=== PATIENT | female | born 1950 | race Caucasian/White ===

== ENCOUNTER 2016-08-27 02:46 | Inpatient (IN) | payer MEDICARE, MEDICAID ==
[~2016-08-27] VITALS: Ht 172.7 cm; Wt 61.2 kg
[~2016-08-27 02:46] MED LIST: ALBU8.5H2 INH; AML5T PO; ASP325T PO; FLUT1DIS26 INH; GBPN100C PO; HYDR-2890 PO; INSU100V5 SQ; IPRA3AMP11 INH; Insulin Human Lispro SC; LISI10TA2 PO; LISI40TA PO; METH40VI2 IV; NCT14P TD; NS10S IV; Non Medication Item TP; PNT40TEC PO; ROSU10TA12 PO; RT-ALBUINH IH; SERT50TA PO; SLMFT1E INH; TIOT18CA IH; WARF2TAB6 PO; WARF4TAB PO; ZLP10T PO
[2016-08-27] MEDS ORDERED: DEXAMETHASONE 4 MG/ML SDV (DECADRON) IH ONE (03:15)
[2016-08-27] MEDS ORDERED: RT-ALBUTEROL/IPRATROPIUM 3 ML (DUONEB) VIAL INH ONE (03:15)
[2016-08-27] MEDS ORDERED: methylPREDNISolone 125 MG (Solu-MEDROL) VIAL IVP ONE (03:15)
[2016-08-27] MEDS ORDERED: ASPI-586 PO (03:25)
[2016-08-27 03:29] LABS: BASOPHILS # (AUTO) 0.1 10^3/uL (0.0-0.1); BASOPHILS % (AUTO) 0 % (0-10); EOSINOPHILS # (AUTO) 0.3 10^3/uL (0.0-0.3); EOSINOPHILS % (AUTO) 2 % (0-10); LYMPHOCYTES # (AUTO) 2.9 X 10^3 (1.0-4.0); LYMPHOCYTES % (AUTO) 20 % (12-44); MEAN CORPUSCULAR HEMOGLOBIN 28 PG (25-34); MEAN CORPUSCULAR HGB CONC 32 G/DL (32-36); MEAN CORPUSCULAR VOLUME 88 FL (80-99); MEAN PLATELET VOLUME 9.3 FL (7.4-10.4); MONOCYTES # (AUTO) 0.6 X 10^3 (0.0-1.0); MONOCYTES % (AUTO) 4 % (0-12); NEUTROPHILS # (AUTO) 10.5 X 10^3 (1.8-7.8); NEUTROPHILS % (AUTO) 73 % (42-75); PLATELET COUNT 305 10^3/uL (130-400); RED BLOOD COUNT 4.35 10^6/uL (4.35-5.85); RED CELL DISTRIBUTION WIDTH 15.2 % (10.0-14.5); WHITE BLOOD COUNT 14.3 10^3/uL (4.3-11.0)
[2016-08-27 03:32] LABS: INR 2.6 (0.8-1.4); PROTHROMBIN TIME PATIENT 27.5 SEC (12.2-14.7)
[2016-08-27 03:45] LABS: ALANINE AMINOTRANSFERASE 7 U/L (0-55); ALBUMIN 3.9 G/DL (3.2-4.5); ANION GAP 13 MMOL/L (5-14); ASPARTATE AMINO TRANSFERASE 11 U/L (5-34); BILIRUBIN,TOTAL 0.3 MG/DL (0.1-1.0); BLOOD UREA NITROGEN 24 MG/DL (7-18); BUN/CREATININE RATIO 16; CALCIUM 9.1 MG/DL (8.5-10.1); CARBON DIOXIDE 24 MMOL/L (21-32); CHLORIDE 105 MMOL/L (98-107); CREATINE KINASE 149 U/L (29-168); CREATININE SERUM 1.53 MG/DL (0.60-1.30); GFR ESTIMATED 34; GLUCOSE 175 MG/DL (70-105); MAGNESIUM 2.1 MG/DL (1.8-2.4); POTASSIUM 4.9 MMOL/L (3.6-5.0); SODIUM 142 MMOL/L (135-145)
[2016-08-27 03:51] LABS: TROPONIN I < 0.30 NG/ML (<0.30)
[2016-08-27 04:01] LABS: ABG BASE EXCESS -0.7 MMOL/L (-2.5-2.5); ABG HCO3 25 MMOL/L (23-27); ABG OXYGEN SATURATION 95 % (94-100); ABG PCO2 45 MMHG (35-45); ABG PH 7.36 (7.37-7.43); ABG PO2 71 MMHG (79-93); ABG TCO2 26.3 MMOL/L (21.0-31.0)
[2016-08-27 04:03] LABS: ALLENS TEST YES-POS; PATIENT TEMP 98.1
--- NOTE | 2016-08-27 04:24 | ED Respiratory ---
General Chief Complaint: Respiratory Problems Stated Complaint: SOA Nursing Triage Note: PT PRESENTS TO ED VIA [facility]. PT REPORTS FALLING YESTERDAY EVENING AND REPORTS WORSENING SOA SINCE LAST NIGHT. PT REPORTS SHE FELL WHEN SHE LOST AHOLD OF HER WALKER WHILE AMBULATING. PT DENIES ANY KNOWN INJURY OR PAIN AT THIS TIME. PT DENIES HITTING HEAD OR LOC. Source: patient (VERY LIMITED HISTORIAN), family (DAUGHTER GIVES MOST INFORMATION), EMS History of Present Illness Time seen by provider: 02:54 Initial Comments PT ARRIVES VIA EMS FROM HOME PT FELL YESTERDAY AM AND INJURED LEFT BREAST AND RIB AREA. WAS USING HER WALKER AND LOST BALANCE/ LOST HOLD OF HER WALKER. WAS SEEN [facility] YESTERDAY AM AROUND 0600 AND XRAYS WERE DONE AND REPORTED NEGATIVE, AND WAS GIVEN RX FOR HYDROCODONE [id number]--PT HAS TAKEN 6 TABS TODAY NO OTHER INJURIES DID NOT HIT HEAD AND NO LOSS OF CONSCIOUSNESS PT DENIES PAIN ANYWHERE. PT HAS COPD AND HAS HAD INCREASED SHORTNESS OF BREATH SINCE LAST NIGHT. O2 SATS 92-94% ON ROOM AIR PER EMS. PT HAS LOOSE COUGH NO FEVER NO SWELLING IN LEGS/ FEET OR PAIN IN CALVES. DAUGHTER STATES THAT PT "CAN'T STAY AWAKE TONIGHT" IS VERY DROWSY--DAUGHTER STATES THAT PT IS NORMALLY AWAKE ALL NIGHT. PT HAS ADVAIR AND WAS STARTED ON INCRUISE INHALER A MONTH AGO ( REPLACED SPIRIVA ) , WHICH PT HAS USED YESTERDAY PRESCRIBED PT HAS ALBUTEROL NEBULIZER, BUT ONLY USED ONCE YESTERDAY AM EMS GAVE NEBULIZER TREATMENT ENROUTE PCP: DR. RIVERO Allergies and Home Medications Allergies Coded Allergies: No Known Drug Allergies (Unverified , 02/25/14) Home Medications Albuterol/Ipratropium 3 Ml Nebu 30Days 3 ML INH RTQ4HR Prescribed by: ANTOINE VILLAGOMEZ on 02/27/14 1713 Aspirin 81 Mg Prashant. 81 MG PO DAILY (Reported) Fluticasone/Salmeterol 1 Disk Inhp 1 PUFF INH BID (Reported) Gabapentin 100 Mg Cap 100 MG PO BID (Reported) Lisinopril 40 Mg Tablet 40 MG PO DAILY (Reported) Rosuvastatin Calcium 10 Mg Tablet 10 MG PO HS (Reported) Sertraline Hcl 50 Mg Tablet 50 MG PO DAILY (Reported) Tiotropium [place] 18 Mcg Cap.w.dev 1 CAP IH DAILY (Reported) Warfarin Sodium 2 Mg Tablet 4 MG PO HS (Reported) PT TAKES 2 MG ON MON, WED, AND MON. PT TAKES 4 MG ON , , MON, AND MONDAY. Zolpidem Tartrate 10 Mg Tablet 10 MG PO HS (Reported) Constitutional: malaise weakness other (DROWSINESS) Respiratory: see HPI cough short of breath Cardiovascular: no symptoms reported Gastrointestinal: no symptoms reported Genitourinary: decreased output (DAUGHTER REPORTS THAT PT HAS ONLY VOIDED 1-2 TIMES TODAY, AND NORMALLY IS 3-4 TIMES A DAY AND IS CHRONICALLY INCONTINENT OF URINE. ) Musculoskeletal: see HPI (LEFT RIB PAIN ) Skin: no symptoms reported Psychiatric/Neurological: No Symptoms Reported Hematologic/Lymphatic: No Symptoms Reported Immunological/Allergic: no symptoms reported Past Sftcqkk-Avpsjc-Gxhexp Hx Patient Social History Alcohol Use: Denies Use Recreational Drug Use: No Smoking Status: Current Everyday Smoker (1/2 PPD) Type Used: Cigarettes Recent Foreign Travel: No Contact w/Someone Who Travel: No Recent Infectious Disease Expo: No Recent Hopitalizations: No Physical Abuse Screen: No Sexual Abuse: No Immunizations Up To Date Date of Pneumonia Vaccine: Aug 28, 2012 Seasonal Allergies Seasonal Allergies: No Surgeries HX Surgeries: Yes (LEFT KNEE REPLACEMENT; LEFT HIP FX/REPAIR; VENA CAVA FILTER) Surgeries: Orthopedic, Vascular Surgery Respiratory Hx Respiratory Disorders: Yes (DVT AND P.E POST OP AFTER HIP SURGERY 2012) Respiratory Disorders: Pneumonia, Pulmonary Embolism, COPD, Emphysema Cardiovascular Hx Cardiac Disorders: Yes Cardiac Disorders: Deep Vein Thrombosis, High Cholesterol, Hypertension Neurological Hx Neurological Disorders: Yes (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 ) Neurological Disorders: Stroke Reproductive System Hx Reproductive Disorders: No Genitourinary Hx Genitourinary Disorders: Yes (INCONTINENCE) Gastrointestinal Hx Gastrointestinal Disorders: No Musculoskeletal Hx Musculoskeletal Disorders: Yes Musculoskeletal Disorders: Arthritis, Fractures Endocrine Hx Endocrine Disorders: No HEENT HX ENT Disorders: No Cancer Hx Cancer: No Psychosocial Hx Psychiatric Problems: Yes Behavioral Health Disorders: Sleep Difficulties, Anxiety, Depression Integumentary HX Skin/Integumentary Disorder: No Blood Transfusions Hx Blood Disorders: Yes (ANEMIA) Family Medical History Family Medial History: Family history: Cardiovascular disease 19 FATHER (irregular heart rythm ) 19 MOTHER G8 SISTER G8 SISTER Family history: Diabetes mellitus 19 MOTHER, Onset:60 years & older Family history: Hypertension G8 SISTER G8 SISTER Hearing loss 19 MOTHER (with age ) Kidney disease 19 FATHER (kidney stones removed with surgery) Stroke G8 SISTER Physical Exam Vital Signs Vital Sign - Last 12Hours 08/27/16 08/27/16 03:08 03:26 Temp 98.5 Pulse 81 Resp 18 B/P 106/63 Pulse Ox 92 O2 Delivery Nasal Cannula O2 Flow Rate 9 Capillary Refill : Less Than 3 Seconds General Appearance: WD/WN no apparent distress other (LETHARGIC/DROWSY. RESPIRATIONS EVEN AND UNLABORED, BUT HAS AUDIBLE RHONCHI) HEENT: PERRL/EOMI Neck: normal inspection Respiratory: no accessory muscle use other (AUDIBLE RHONCHI) Cardiovascular: regular rate, rhythm no murmur Gastrointestinal: non tender soft Extremities: no pedal edema no calf tenderness normal capillary refill Neurologic/Psychiatric: seafood packer II-XII nml as tested no motor/sensory deficits alert oriented x 3 other (DROWSY/LETHARGIC) Skin: normal color warm/dry Progress/Results/Core Measures Results/Orders Lab Results Laboratory Tests Test 08/27/16 03:02 08/27/16 03:50 08/27/16 05:14 Range/Units Activated Partial Thromboplast Time 56 H 24-35 SEC Alanine Aminotransferase (ALT/SGPT) 7 0-55 U/L Albumin 3.9 3.2-4.5 G/DL Alkaline Phosphatase 79 40-136 U/L Anion Gap 13 5-14 MMOL/L Aspartate Amino Transf (AST/SGOT) 11 5-34 U/L B-Type Natriuretic Peptide 22.4 <100.0 PG/ML BUN/Creatinine Ratio 16 Basophils # (Auto) 0.1 0.0-0.1 10^3/uL Basophils (%) (Auto) 0 0-10 % Blood Urea Nitrogen 24 H 7-18 MG/DL Calcium Level 9.1 8.5-10.1 MG/DL Carbon Dioxide Level 24 21-32 MMOL/L Chloride Level 105 98-107 MMOL/L Creatine Kinase MB 3.9 <6.6 NG/ML Creatinine 1.53 H 0.60-1.30 MG/DL Eosinophils # (Auto) 0.3 0.0-0.3 10^3/uL Eosinophils (%) (Auto) 2 0-10 % Estimat Glomerular Filtration Rate 34 Glucose Level 175 H 70-105 MG/DL Hematocrit 38 35-52 % Hemoglobin 12.2 11.5-16.0 G/DL INR Comment 2.6 H 0.8-1.4 Lactic Acid Level 1.4 0.5-2.0 MMOL/L Lymphocytes # (Auto) 2.9 1.0-4.0 X 10^3 Lymphocytes (%) (Auto) 20 12-44 % Magnesium Level 2.1 1.8-2.4 MG/DL Mean Corpuscular Hemoglobin 28 25-34 PG Mean Corpuscular Hemoglobin Concent 32 32-36 G/DL Mean Corpuscular Volume 88 80-99 FL Mean Platelet Volume 9.3 7.4-10.4 FL Monocytes # (Auto) 0.6 0.0-1.0 X 10^3 Monocytes (%) (Auto) 4 0-12 % Neutrophils # (Auto) 10.5 H 1.8-7.8 X 10^3 Neutrophils (%) (Auto) 73 42-75 % Platelet Count 305 130-400 10^3/uL Potassium Level 4.9 3.6-5.0 MMOL/L Prothrombin Time 27.5 H 12.2-14.7 SEC Red Blood Count 4.35 4.35-5.85 10^6/uL Red Cell Distribution Width 15.2 H 10.0-14.5 % Sodium Level 142 135-145 MMOL/L Total Bilirubin 0.3 0.1-1.0 MG/DL Total Creatine Kinase 149 29-168 U/L Total Protein 7.0 6.4-8.2 G/DL Troponin I < 0.30 <0.30 NG/ML White Blood Count 14.3 H 4.3-11.0 10^3/uL Sunday Test YES-POS Arterial Blood Base Excess -0.7 -2.5-2.5 MMOL/L Arterial Blood HCO3 25 23-27 MMOL/L Arterial Blood Oxygen Saturation 95 94-100 % Arterial Blood Partial Pressure CO2 45 35-45 MMHG Arterial Blood Partial Pressure O2 71 L 79-93 MMHG Arterial Blood Total CO2 26.3 21.0-31.0 MMOL/L Arterial Blood pH 7.36 L 7.37-7.43 Blood Gas Inspired Oxygen 2L Blood Gas Patient Temperature 98.1 Blood Gas Puncture Site RIGHT RADIAL Blood Gas Ventilator Setting NO Urine Bacteria LARGE H /HPF Urine Bilirubin 1+ H NEGATIVE Urine Casts PRESENT /LPF Urine Clarity SLIGHTLY CLOUDY Urine Color YELLOW Urine Crystals NONE /LPF Urine Culture Indicated YES Urine Glucose (UA) NEGATIVE NEGATIVE Urine Hyaline Casts 10-25 H /LPF Urine Ketones 1+ H NEGATIVE Urine Leukocyte Esterase 3+ H NEGATIVE Urine Mucus LARGE H /LPF Urine Nitrite POSITIVE H NEGATIVE Urine Protein 2+ H NEGATIVE Urine RBC NONE /HPF Urine RBC (Auto) 1+ H NEGATIVE Urine Specific [place] 1.020 1.016-1.022 Urine Squamous Epithelial Cells 5-10 /HPF Urine Urobilinogen 1 NORMAL MG/DL Urine WBC 25-50 H /HPF Urine pH 5 5-9 Micro Results Microbiology 08/27/16 Influenza Types A,B Antigen (SILVESTRE) - Final, Complete My Orders Orders-RICKEY LOWRY DO Saline Lock/Iv-Start (08/27/16 03:03) Ekg Tracing (08/27/16 03:03) O2 (08/27/16 03:03) Monitor-Rhythm Ecg Trace Only (08/27/16 03:03) Arterial Blood Gas (08/27/16 03:03) BNP (08/27/16 03:03) Cbc With Automated Diff (08/27/16 03:03) Comprehensive Metabolic Panel (08/27/16 03:03) Creatine Kinase (08/27/16 03:03) Creatine Kinase Mb (08/27/16 03:03) Lactic Acid Analyzer (08/27/16 03:03) Magnesium (08/27/16 03:03) Protime With Inr (08/27/16 03:03) Partial Thromboplastin Time (08/27/16 03:03) Troponin I (08/27/16 03:03) Blood Culture (08/27/16 03:03) Influenza A And B Antigens (08/27/16 03:03) Chest 1 View, Ap/Pa Only (08/27/16 03:03) Albuterol/Ipra Inhalation Soln (Duoneb I (08/27/16 03:15) Dexamethasone Injection (Decadron Inject (08/27/16 03:15) Rt Request For Service (08/27/16 03:03) Svn Sm Volume Nebulizer Rt-Rfs (08/27/16 03:03) Methylprednisolone Sod Succ (Solu-Medrol (08/27/16 03:15) Ct Chest Wo (08/27/16 04:24) Ua Culture If Indicated (08/27/16 04:47) Urine Culture (08/27/16 05:14) Levofloxacin 750 Mg/150 Ml Iv (Levaquin (08/27/16 05:31) Medications Given in ED Current Medications Medications Dose Ordered Sig/Marcin Route Start Time Stop Time Status Last Admin Dose Admin Albuterol/ Ipratropium 3 ml ONCE ONCE INH 08/27/16 03:15 08/27/16 03:16 DC 08/27/16 03:29 3 ML Dexamethasone Sodium Phosphate 20 mg ONCE ONCE IH 08/27/16 03:15 08/27/16 03:16 DC 08/27/16 03:29 20 MG Methylprednisolone Sodium Succinate 125 mg ONCE ONCE IVP 08/27/16 03:15 08/27/16 03:16 DC 08/27/16 03:18 125 MG Vital Signs/I&O Vital Sign - Last 12Hours 08/27/16 08/27/16 08/27/16 03:08 03:26 03:29 Temp 98.5 Pulse 81 Resp 18 B/P 106/63 Pulse Ox 92 94 92 O2 Delivery Nasal Cannula Nasal Cannula Nasal Cannula O2 Flow Rate 9 2 Blood Pressure Mean: 77 Progress Note : Progress Note NO SIGNIFICANT IMPROVEMENT AFTER NEBULIZER TREATMENTS BP UP WITH FLUIDS 0520 DAUGHTER NOW REPORTS THAT SHE HAS ASPIRATED BEFORE AND FREQUENTLY CHOKES EVERY TIME SHE EATS, BUT TONIGHT WAS EATING ICE CREAM AND GOT REALLY CHOKED AND DAUGHTER NOW REPORTS THAT SHE MIGHT HAVE ASPIRATED THEN. ECG Initial ECG Impression Time: 03:08 Initial ECG Rate: 81 Initial ECG Rhythm: Normal Sinus Initial ECG Comparisson: No Previous ECG Available Diagnostic Imaging Comments CXR--CHRONIC APPEARING CHANGES, PENDING RADIOLOGIST REVIEW CT CHEST--DEBRIS/ASPIRATION NOTED IN BILATERAL BRONCHI, RLL CONSOLIDATION/ COLLAPSE, LIKELY ASPIRATION IN RLL AND LEFT LUNG, EMPHYSEMATOUS CHANGES. OTHER NON-ACUTE FINDINGS PER STAT RAD VIA FAX @ 1525 Reviewed: Reviewed by Me Departure Communication Progress Notes [id number]--PAGED /SPOKE WITH DR. FERGUSON, ACCEPTS PT FOR ADMIT. Impression Impression: Primary Impression: COPD exacerbation Additional Impressions: RLL pneumonia Hypoxia Aspiration pneumonia DEHYDRATION WITH RENAL INSUFFICIENCY Hypotension UTI (urinary tract infection) Disposition: ADMITTED INPATIENT Condition: Stable Decision to Admit Reason: Admit from ER (General) Decision to Admit/Date: Aug 27, 2016 Time/Decision to Admit Time: 05:30 Departure-Patient Inst. Referrals: MONIQUE RIVERO MD (PCP) Primary Care Physician RICKEY LOWRY DO Aug 27, 2016 04:24
[2016-08-27 05:25] LABS: BILIRUBIN,URINE 1+ (NEGATIVE); KETONES,URINE 1+ (NEGATIVE); LEUKOCYTE ESTERASE ,URINE 3+ (NEGATIVE); NITRITE,URINE POSITIVE (NEGATIVE); PH,URINE 5 (5-9); PROTEIN,URINE 2+ (NEGATIVE); UROBILINOGEN,URINE 1 MG/DL (NORMAL)
[2016-08-27] MEDS ORDERED: LEVOFLOXACIN 750 MG/150 ML IV 150 ML IV STA (05:31)
[2016-08-27 05:35] LABS: WBC,URINE 25-50 /HPF
[2016-08-27] MEDS ORDERED: D5 1/2 NS 1000 ML IV SOLUTION 1,000 ML IV ONE (05:56)
[2016-08-27] MEDS ORDERED: NS IV 500 ML 500 ML IV ONE (05:57)
[2016-08-27 06:45] VITALS: BP 97/60
--- NOTE | 2016-08-27 07:27 | Diagnostic Imaging Report ---
PROCEDURE: CT chest without contrast. TECHNIQUE: Multiple contiguous axial images were obtained through the chest without the use of intravenous contrast. INDICATION: Shortness of breath. COMPARISON: Comparison is made with a chest radiograph from earlier in the same day. Correlation also made with a prior CT angiogram of the chest from February 25, 2014. FINDINGS: There is dense consolidation demonstrated within the right lower lobe at the right lung base. There is also more patchy infiltrate demonstrated within the left lower lobe. Findings appear superimposed on background features of underlying centrilobular emphysema. There is no evidence of an effusion. There is no pneumothorax. There are atherosclerotic calcifications within the aorta and coronary vessels. There are some small non-pathologically enlarged mediastinal lymph nodes. There is no pericardial effusion. The upper abdomen demonstrates no acute process. An IVC filter is noted. There are multilevel degenerative changes demonstrated within the spine. There is a lower thoracic compression fracture which demonstrates no acute fracture lines and is believed to be chronic. There is no adjacent paraspinal edema. IMPRESSION: 1. Dense consolidative changes are demonstrated within the right lower lobe compatible with pneumonia. There are more patchy infiltrates within the left lower lobe. 2. Findings appear superimposed on background features of underlying centrilobular emphysema. 3. There is no pathologically enlarged lymphadenopathy. 4. Atherosclerosis of coronary artery disease. 5. Lower thoracic compression fracture believed to be chronic. Dictated by: Dictated on workstation # [id number]
--- NOTE | 2016-08-27 07:45 | Diagnostic Imaging Report ---
EXAMINATION: Portable chest is compared to a prior study from February 27, 2014. INDICATION: Shortness of breath. FINDINGS: Right greater than left bibasilar consolidation or infiltrate is demonstrated. Findings are superimposed on background chronic interstitial lung disease. Heart size and mediastinal contours appear appropriate. There is no significant effusion. There is no pneumothorax. There are degenerative changes present throughout the spine. An IVC filter is noted. IMPRESSION: Right greater than left basilar consolidation suggestive of infiltrates. There is no significant pleural fluid. Findings are superimposed on background chronic interstitial lung disease. Dictated by: Dictated on workstation # [id number]
[2016-08-27] MEDS ORDERED: VANCOMYCIN 1250 MG/NS 250 ML IVPB IV NR ×2 (07:55)
[2016-08-27 08:00] VITALS: BP 93/58
[2016-08-27] MEDS: D5 1/2 NS 1000 ML IV SOLUTION 1,000 ML IV SCH ×3 (08:00→17:16)
[2016-08-27] MEDS ORDERED: fentaNYL INJECTION 100 MCG/2 ML AMP IVP PRN (08:00)
[2016-08-27] MEDS ORDERED: RT-ALBUTEROL/IPRATROPIUM 3 ML (DUONEB) VIAL ONE (08:59)
[2016-08-27] MEDS: CEFEPIME 2 GM/NS 50 ML IVPB IV SCH ×2 (10:30)
--- NOTE | 2016-08-27 11:31 | History & Physical-Hospitalist ---
HPI History of Present Illness: HPI/Chief Complaint Mrs. Ontiveros is a frail 66-year-old white female who is cared for by her daughter due to some the sequela of a right-sided CVA with left-sided hemiparesis several years ago. She would be unable to care for self otherwise. History is taken from the daughter who stated that she was in her usual state of health until her evening snack which included ice cream. She apparently did okay with the solid part of the medial chicken wings and another fast food items. When she started working on the ice cream she began coughing and choking the daughter was present and had a take the ice cream away from her. She became more obtunded after that with continued rattling which she did not have previously was brought to the emergency room where examination and CT findings suggested aspiration pneumonitis involving both lower lobes worse on the right. Past medical history other than her CVA is significant for similar admission for aspiration pneumonitis in 2013. Date Seen 08/27/16 Attending Physician Isela Ferguson MD PCP Manolo Quinteros MD Referring Physician Date of Admission Aug 27, 2016 at 05:30 Home Medications & Allergies Home Medications Reviewed patient Home Medication Reconciliation Form Allergies Coded Allergies: No Known Drug Allergies (Unverified , 02/25/14) Past Bazabhj-Jnydsk-Ejlxcf Hx Patient Social History Alcohol Use: Denies Use Recreational Drug Use: No Smoking Status: Current Everyday Smoker Type Used: Cigarettes Physical Abuse Screen: No Sexual Abuse: No Recent Foreign Travel: No Contact w/other who traveled: No Recent Hopitalizations: No Recent Infectious Disease Expo: No Immunizations Up To Date Date of Pneumonia Vaccine: Aug 28, 2012 Date of Influenza Vaccine: Jun 14, 2016 Seasonal Allergies Seasonal Allergies: No Surgeries HX Surgeries: Yes (LEFT KNEE REPLACEMENT; LEFT HIP FX/REPAIR; VENA CAVA FILTER) Surgeries: Orthopedic, Vascular Surgery Respiratory Hx Respiratory Disorders: Yes (DVT AND P.E POST OP AFTER HIP SURGERY 2012) Cardiovascular Hx Cardiovascular Disorders: Yes Cardiac Disorders: Deep Vein Thrombosis, High Cholesterol, Hypertension Neurological Hx Neurological Disorders: Yes (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 ) Neurological Disorders: Stroke Reproductive System Hx Reproductive Disorders: No Genitourinary Hx Genitourinary Disorders: Yes (INCONTINENCE) Gastrointestinal Hx Gastrointestinal Disorders: No Musculoskeletal Hx Musculoskeletal Disorders: Yes Musculoskeletal Disorders: Arthritis, Fractures Endocrine Hx Endocrine Disorders: No HEENT HX ENT Disorders: No Cancer Hx Cancer: No Psychosocial Hx Psychiatric Problems: Yes Behavioral Health Disorders: Sleep Difficulties, Anxiety, Depression Integumentary HX Skin/Integumentary Disorder: No Blood Transfusions Hx Blood Disorders: Yes (ANEMIA) Family Medical History Family Hx: Family history: Cardiovascular disease 19 FATHER (irregular heart rythm ) 19 MOTHER G8 SISTER G8 SISTER Family history: Diabetes mellitus 19 MOTHER, Onset:60 years & older Family history: Hypertension G8 SISTER G8 SISTER Hearing loss 19 MOTHER (with age ) Kidney disease 19 FATHER (kidney stones removed with surgery) Stroke G8 SISTER Review of Systems ROS-Unable to Obtain: due to confusion Constitutional: see HPI Physical Exam Physical Exam Vital Signs Vital Sign - Last 12Hours 08/27/16 08/27/16 03:08 03:26 Temp 98.5 Pulse 81 Resp 18 B/P 106/63 Pulse Ox 92 O2 Delivery Nasal Cannula O2 Flow Rate 9 Capillary Refill : Less Than 3 SecondsLess Than 3 Seconds General Appearance: Chronically ill Other (appears significantly older than stated age) Respiratory: Other (lungs audible rhonchi with mild respiratory distress noted. Respiratory rate was 20 with some mild use of accessory muscles respiration.) Cardiovascular: Other (unable to hear over loud rhonchi. Rhythm appears to be regular) Gastrointestinal: Normal Bowel Sounds No Organomegaly No Pulsatile Mass Non Tender Soft Extremity: Normal Capillary Refill Normal Inspection Normal Range of Motion Non Tender No Calf Tenderness No Pedal Edema Neurologic/Psychiatric: Depressed Affect Skin: Pallor Comments Laboratory Tests Test 08/27/16 03:02 08/27/16 03:50 08/27/16 05:14 Range/Units Activated Partial Thromboplast Time 56 H 24-35 SEC Alanine Aminotransferase (ALT/SGPT) 7 0-55 U/L Albumin 3.9 3.2-4.5 G/DL Alkaline Phosphatase 79 40-136 U/L Anion Gap 13 5-14 MMOL/L Aspartate Amino Transf (AST/SGOT) 11 5-34 U/L B-Type Natriuretic Peptide 22.4 <100.0 PG/ML BUN/Creatinine Ratio 16 Basophils # (Auto) 0.1 0.0-0.1 10^3/uL Basophils (%) (Auto) 0 0-10 % Blood Urea Nitrogen 24 H 7-18 MG/DL Calcium Level 9.1 8.5-10.1 MG/DL Carbon Dioxide Level 24 21-32 MMOL/L Chloride Level 105 98-107 MMOL/L Creatine Kinase MB 3.9 <6.6 NG/ML Creatinine 1.53 H 0.60-1.30 MG/DL Eosinophils # (Auto) 0.3 0.0-0.3 10^3/uL Eosinophils (%) (Auto) 2 0-10 % Estimat Glomerular Filtration Rate 34 Glucose Level 175 H 70-105 MG/DL Hematocrit 38 35-52 % Hemoglobin 12.2 11.5-16.0 G/DL INR Comment 2.6 H 0.8-1.4 Lactic Acid Level 1.4 0.5-2.0 MMOL/L Lymphocytes # (Auto) 2.9 1.0-4.0 X 10^3 Lymphocytes (%) (Auto) 20 12-44 % Magnesium Level 2.1 1.8-2.4 MG/DL Mean Corpuscular Hemoglobin 28 25-34 PG Mean Corpuscular Hemoglobin Concent 32 32-36 G/DL Mean Corpuscular Volume 88 80-99 FL Mean Platelet Volume 9.3 7.4-10.4 FL Monocytes # (Auto) 0.6 0.0-1.0 X 10^3 Monocytes (%) (Auto) 4 0-12 % Neutrophils # (Auto) 10.5 H 1.8-7.8 X 10^3 Neutrophils (%) (Auto) 73 42-75 % Platelet Count 305 130-400 10^3/uL Potassium Level 4.9 3.6-5.0 MMOL/L Prothrombin Time 27.5 H 12.2-14.7 SEC Red Blood Count 4.35 4.35-5.85 10^6/uL Red Cell Distribution Width 15.2 H 10.0-14.5 % Sodium Level 142 135-145 MMOL/L Total Bilirubin 0.3 0.1-1.0 MG/DL Total Creatine Kinase 149 29-168 U/L Total Protein 7.0 6.4-8.2 G/DL Troponin I < 0.30 <0.30 NG/ML White Blood Count 14.3 H 4.3-11.0 10^3/uL Sunday Test YES-POS Arterial Blood Base Excess -0.7 -2.5-2.5 MMOL/L Arterial Blood HCO3 25 23-27 MMOL/L Arterial Blood Oxygen Saturation 95 94-100 % Arterial Blood Partial Pressure CO2 45 35-45 MMHG Arterial Blood Partial Pressure O2 71 L 79-93 MMHG Arterial Blood Total CO2 26.3 21.0-31.0 MMOL/L Arterial Blood pH 7.36 L 7.37-7.43 Blood Gas Inspired Oxygen 2L Blood Gas Patient Temperature 98.1 Blood Gas Puncture Site RIGHT RADIAL Blood Gas Ventilator Setting NO Urine Bacteria LARGE H /HPF Urine Bilirubin 1+ H NEGATIVE Urine Casts PRESENT /LPF Urine Clarity SLIGHTLY CLOUDY Urine Color YELLOW Urine Crystals NONE /LPF Urine Culture Indicated YES Urine Glucose (UA) NEGATIVE NEGATIVE Urine Hyaline Casts 10-25 H /LPF Urine Ketones 1+ H NEGATIVE Urine Leukocyte Esterase 3+ H NEGATIVE Urine Mucus LARGE H /LPF Urine Nitrite POSITIVE H NEGATIVE Urine Protein 2+ H NEGATIVE Urine RBC NONE /HPF Urine RBC (Auto) 1+ H NEGATIVE Urine Specific [place] 1.020 1.016-1.022 Urine Squamous Epithelial Cells 5-10 /HPF Urine Urobilinogen 1 NORMAL MG/DL Urine WBC 25-50 H /HPF Urine pH 5 5-9 Laboratory Tests Test 08/27/16 03:50 Sunday Test YES-POS Arterial Blood Base Excess -0.7MMOL/L Arterial Blood HCO3 25MMOL/L Arterial Blood Oxygen Saturation 95% Arterial Blood Partial Pressure CO2 45MMHG Arterial Blood Partial Pressure O2 71MMHG Arterial Blood Total CO2 26.3MMOL/L Arterial Blood pH 7.36 Blood Gas Inspired Oxygen 2L Blood Gas Patient Temperature 98.1 Blood Gas Puncture Site RIGHT RADIAL Blood Gas Ventilator Setting NO Results Results/Procedures Lab Laboratory Tests 08/27/16 03:02 Assessment/Plan Admission Diagnosis 1. Aspiration pneumonitis this is likely a chemical injury at this point she does not qualify for sepsis for this reason. She certainly is at risk for secondary bacterial pneumonitis so I will continue broad-spectrum antibiotics that were initiated by the emergency room staff for now. Had a long discussion with the daughter about poor prognosis and the concern for progression to ARDS. At this point they still wish full CODE STATUS. I did discuss the fact that her quality of life would be worse than previously and it would be unlikely for her to get back to her previous poor baseline. They will discuss CODE STATUS issues further. The daughter is adamant that she will continue to care for her mother at home I did also discuss that this would be even more of a burden should she survive this hospital stay. She will remain nothing by mouth with speech therapy consultation on Monday. We will try oral Coumadin at a reduced dose with a small amount of thickened liquid this evening provided that she is alert. We'll be holding her other medications. 45 minutes of care time was spent in evaluation and discussion as well as order implementation. Clinical Quality Measures DVT/VTE Risk/Contraindication: Risk Factor Score Per Nursin RFS Level Per Nursing on Admit: 4+=Very High ISELA FERGUSON MD Aug 27, 2016 11:31
[2016-08-27 12:00] VITALS: BP 130/74
[2016-08-27] MEDS: methylPREDNISolone 125 MG (Solu-MEDROL) VIAL IVP SCH ×2 (13:15→17:15)
[2016-08-27] MEDS: RT-ALBUTEROL/IPRATROPIUM 3 ML (DUONEB) VIAL INH SCH ×3 (13:40→22:18)
[2016-08-27] MEDS: RT-ADVAIR HFA 115/21 MCG PER PUFF IH SCH ×2 (13:41→18:46)
[2016-08-27 16:00] VITALS: BP 125/58
[2016-08-27] MEDS: warFARin 2 MG (COUMADIN) TAB PO SCH (17:15)
[2016-08-27 19:51] VITALS: BP 135/76
[2016-08-28 00:07] VITALS: BP 134/63
[2016-08-28] MEDS: D5 1/2 NS 1000 ML IV SOLUTION 1,000 ML IV SCH ×2 (00:16→07:04)
[2016-08-28] MEDS: methylPREDNISolone 125 MG (Solu-MEDROL) VIAL IVP SCH (00:26)
[2016-08-28] MEDS: RT-ALBUTEROL/IPRATROPIUM 3 ML (DUONEB) VIAL INH SCH ×5 (02:25→19:36)
[2016-08-28 04:00] VITALS: BP 138/69
[2016-08-28 04:34] LABS: BASOPHILS % (AUTO) 0 % (0-10); EOSINOPHILS % (AUTO) 0 % (0-10); LYMPHOCYTES # (AUTO) 0.7 X 10^3 (1.0-4.0); LYMPHOCYTES % (AUTO) 7 % (12-44); MEAN CORPUSCULAR HEMOGLOBIN 28 PG (25-34); MEAN CORPUSCULAR HGB CONC 33 G/DL (32-36); MEAN CORPUSCULAR VOLUME 86 FL (80-99); MEAN PLATELET VOLUME 9.5 FL (7.4-10.4); MONOCYTES # (AUTO) 0.1 X 10^3 (0.0-1.0); MONOCYTES % (AUTO) 1 % (0-12); NEUTROPHILS # (AUTO) 9.1 X 10^3 (1.8-7.8); NEUTROPHILS % (AUTO) 92 % (42-75); PLATELET COUNT 242 10^3/uL (130-400); RED BLOOD COUNT 3.53 10^6/uL (4.35-5.85); RED CELL DISTRIBUTION WIDTH 14.4 % (10.0-14.5); WHITE BLOOD COUNT 9.9 10^3/uL (4.3-11.0)
[2016-08-28 04:44] LABS: INR 3.1 (0.8-1.4); PROTHROMBIN TIME PATIENT 31.8 SEC (12.2-14.7)
[2016-08-28 04:58] LABS: ALANINE AMINOTRANSFERASE 8 U/L (0-55); ALBUMIN 3.5 G/DL (3.2-4.5); ANION GAP 11 MMOL/L (5-14); ASPARTATE AMINO TRANSFERASE 8 U/L (5-34); BILIRUBIN,TOTAL 0.3 MG/DL (0.1-1.0); BLOOD UREA NITROGEN 14 MG/DL (7-18); BUN/CREATININE RATIO 18; CALCIUM 8.7 MG/DL (8.5-10.1); CARBON DIOXIDE 17 MMOL/L (21-32); CHLORIDE 107 MMOL/L (98-107); CREATININE SERUM 0.78 MG/DL (0.60-1.30); GFR ESTIMATED > 60; GLUCOSE 351 MG/DL (70-105); POTASSIUM 4.1 MMOL/L (3.6-5.0); SODIUM 135 MMOL/L (135-145)
[2016-08-28] MEDS: UMECLIDINIUM BROMIDE (INCRUSE ELLIPTA) 7'S IH SCH (06:40)
[2016-08-28 08:00] VITALS: BP 174/99
[2016-08-28] MEDS ORDERED: VANCOMYCIN 1 GM/NS 250 ML IVPB IV SCH ×2 (08:00)
[2016-08-28] MEDS: NS IV 1000 ML 1,000 ML IV SCH (08:41)
[2016-08-28] MEDS: CEFEPIME 2 GM/NS 50 ML IVPB IV SCH ×2 (08:41)
[2016-08-28] MEDS: PIPERACILLIN SODIUM/TAZOBACTAM 4.5 GM in NORMAL SALINE (BAXTER MINI) 100 ML IV SCH ×2 (10:43→16:34)
--- NOTE | 2016-08-28 11:21 | Progress Note-Hospitalist ---
Subjective HPI/CC On Admission Mrs. Ontiveros is a frail 66-year-old white female who is cared for by her daughter due to some the sequela of a right-sided CVA with left-sided hemiparesis several years ago. She would be unable to care for self otherwise. History is taken from the daughter who stated that she was in her usual state of health until her evening snack which included ice cream. She apparently did okay with the solid part of the medial chicken wings and another fast food items. When she started working on the ice cream she began coughing and choking the daughter was present and had a take the ice cream away from her. She became more obtunded after that with continued rattling which she did not have previously was brought to the emergency room where examination and CT findings suggested aspiration pneumonitis involving both lower lobes worse on the right. Past medical history other than her CVA is significant for similar admission for aspiration pneumonitis in 2013. Date Seen 08/28/16 Subjective/Events-last exam Pt.voices no complaints except that she would like to eat. She has a loose sounding cough nonproductive. She denies chest pain chills or fever Objective Exam Vital Signs Vital Sign - Last 12Hours 08/27/16 08/27/16 03:08 03:26 Temp 98.5 Pulse 81 Resp 18 B/P 106/63 Pulse Ox 92 O2 Delivery Nasal Cannula O2 Flow Rate 9 Capillary Refill : Less Than 3 SecondsLess Than 3 Seconds General Appearance: No Apparent Distress Chronically ill Respiratory: Chest Non Tender No Respiratory Distress Other (rhonchi are no longer audible without stethoscope. On auscultation she does have diffuse bilateral rhonchi and very loose nonproductive cough) Cardiovascular: Regular Rate, Rhythm No Edema No JVD Other (occult here over breath sounds. She regular no murmurs are appreciated.) Extremity: Normal Inspection Normal Range of Motion Non Tender No Calf Tenderness No Pedal Edema Results/Procedures Lab Laboratory Tests 08/28/16 04:15 Assessment/Plan Assessment and Plan Assess & Plan/Chief Complaint 1. Bibasilar pneumonitis likely aspiration in etiology switching to Zosyn. Respiratory status slightly improved from yesterday. 2. Dysphasia likely due to previous CVA patient scheduled for speech study in the morning continue nothing by mouth status. 3. On Coumadin apparently since DVT in 2012 that was provoked postoperative period INR up to 3.1 will hold Coumadin today and repeat INR in ISELA Sifuentes MD Aug 28, 2016 11:21
[2016-08-28 12:00] VITALS: BP 154/67
[2016-08-28 12:30] LABS: ANISOCYTOSIS SLIGHT; BAND NEUTROPHILS 5 %; LYMPHOCYTES % (MANUAL) 4 %; NEUTROPHILS % (MANUAL) 88 %
[2016-08-28] MEDS: warFARin 2 MG (COUMADIN) TAB PO SCH (12:35)
[2016-08-28 16:57] VITALS: BP 118/66
[2016-08-28] MEDS: RT-ADVAIR HFA 115/21 MCG PER PUFF IH SCH (19:37)
[2016-08-28 20:00] VITALS: BP 107/60
[2016-08-29] VITALS: BP 146/67
[2016-08-29] MEDS: NS IV 1000 ML 1,000 ML IV SCH ×2 (00:26→10:28)
[2016-08-29] MEDS: PIPERACILLIN SODIUM/TAZOBACTAM 4.5 GM in NORMAL SALINE (BAXTER MINI) 100 ML IV SCH ×3 (00:26→17:07)
[2016-08-29] MEDS: RT-ALBUTEROL/IPRATROPIUM 3 ML (DUONEB) VIAL INH SCH ×7 (01:14→21:44)
[2016-08-29] MEDS ORDERED: LEVOFLOXACIN 750 MG/D5W 150 ML PRE-MIX IV SCH (06:00)
[2016-08-29] MEDS: RT-ADVAIR HFA 115/21 MCG PER PUFF IH SCH ×2 (06:43→18:04)
[2016-08-29] MEDS: UMECLIDINIUM BROMIDE (INCRUSE ELLIPTA) 7'S IH SCH (06:46)
[2016-08-29] MEDS ORDERED: TROUGH ORDER-PHARMACY XX NR (07:00)
[2016-08-29 07:23] LABS: INR 3.7 (0.8-1.4); PROTHROMBIN TIME PATIENT 36.6 SEC (12.2-14.7)
[2016-08-29 08:00] VITALS: BP 153/77
[2016-08-29] MEDS ORDERED: CATHETER FLUSH 10 ML SYR IV PRN (08:30)
--- NOTE | 2016-08-29 08:41 | ST Dysphagia Evaluation ---
Speech Evaluation-General Medical Diagnosis Aspiration Pneumonia (R>L) Onset Date: Aug 27, 2016 Therapy Diagnosis Therapy Diagnosis: Moderate Oropharyngeal Dysphagia Precautions Precautions: Aspiration Precautions/Isolations: Fall Prevention, Standard Precautions Referral Referring Physician: Dr. Juan Pablo Killian Reason for Referral: Evaluation/Treatment Clinical Bedside Swallowing Evaluation Medical History Pertinent Medical History: Arthritis, CVA, Smoking (Current Smoker.) Reviewed History: Yes Speech PLF/Current-Dysphagia Prior Level of Function Per patient's family, the patient is "supposed to thicken her stuff to nectar" at home, however, refuses. The family reported the patient has experienced signs /symptoms of aspiration (coughing) with thin liquids since her previous stroke. The patient stated she consumes "everything" at home without restrictions. Subjective The patient was recently admitted to [facility] with a diagnosis of aspiration pneumonia. The patient was sleeping upon entrance, however, roused easily with gentle verbal prompts from the clinician. The patient had three daughters present at bedside who remained for the bedside swallowing evaluation. The patient was agreeable to dysphagia assessment on this date. CXR: 08/27/16: Right greater than left basilar consolidation suggestive of infiltrates. There is no significant pleural fluid. Findings are superimposed on background chronic interstitial lung disease. Cognitive Status Patient Orientation: Person, Place Oral Motor Skills Dentition: Edentalous Denture Type: Full- Upper & Lower Ability to Follow Directions: Good The patient is NPO pending results of clinical swallow evaluation. Oral Expression Ability: Mild Impairment Voice Voice Phonatory-Based Quality: Breathy, Weak Voice Pitch: Normal Voice Loudness: Moderately Soft/Quiet Face Facial Symmetry: Asymmetrical (The patient presented with a mild right facial droop.) Oral-Facial Assessment Oral-Facial Dentition: Normal Labial Seal Description: Weak Smile: Normal Puff Cheeks: Reduced Strength (Bilaterally.) Lingual Protrusion: Normal Lingual ROM: Normal Lingual Strength: Normal Pharynx Velopharyngeal Move.: Normal Volitional Dry Swallow: Yes (The patient denied odynophagia upon a dry swallow. ) Dysphagia Evaluation Consistencies Presented: Regular, Thin Liquid, [place] Thick Liquid, Pureed Oral Phase: Oral Residue, Reduced Oral Transit The patient demonstrated lingual and buccal residue with solid consistencies tested. Pharyngeal Phase: Multiple Swallow Attempts, Clears Throat, Delayed Laryngeal Elevation, Reduced Laryngeal Elevation Funct. Velo/Pharyngeal Symptom: Cough After Swallow - Thin Liquid, [place]-Thick Liquid (via teaspoon): The patient demonstrated an immediate, rigorous cough following teaspoons of thin liquid and nectar-thick liquid. - Honey-Thick Liquid: No signs/symptoms of aspiration were demonstrated with multiple boluses of honey-thick liquid via teaspoon or cup sip. - Puree: No signs/symptoms of aspiration were demonstrated with multiple teaspoons of applesauce. - Solid: Increased mastication time and residue was noted with solid consistencies tested. No signs/symptoms of aspiration were demonstrated. Dietary Recommendations: Mechanical Soft Liquid Recommendations: Honey Consistancy Swallowing Precautions: Decreased Bolus 1/2 Tsp, No Straw, Small Bites and Sips , Sitting 90 Degrees 30 Post Intake Dysphagia Evaluation Summary The patient demonstrated moderate oropharyngeal dysphagia characterized by decreased lingual strength and coordination, delayed laryngeal elevation, and reduced airway protection in the presence of bolus material. Speech Short Term Goals Short Term Goals Short Term Goals 1. The patient will tolerate trials of the least restrictive consistency without signs/symptoms of aspiration. 2. The patient will demonstrate swallowing strategies with mild clinician cueing with 80% accuracy. 3. The patient will demonstrated laryngeal, pharyngeal, and base of tongue strengthening exercises with 80% accuracy and mild clinician verbal cueing. Time Frame-STG: One Week Speech Long-Term Goals Long-Term Goals 1. The patient will tolerate a diet of the least restrictive consistency without signs.symptoms of aspiration. Time Frame: Three Weeks Speech-Plan Treatment Plan Speech Therapy Treatment Plan: Continue Plan of Care Treatment Duration: Sep 19, 2016 # of days/week Three to Four Visits Per Week: Three to Four Minutes/Day (M-F): 20 Rehab Potential: Guarded Safety Risks/Education Teaching Recipient: Patient, Family Teaching Methods: Discussion Response to Teaching: Verbalize Understanding, Reinforcement Needed Education Topics Provided: Signs/Symptoms of Aspiration, Swallowing Strategies, Recommendations. - To note, the patient verbalized comprehension, however, family members present stated the patient was not compliant with thickening recommendation at home due to a dislike of the texture. Time Speech Therapy Time In: 08:00 Speech Therapy Time Out: 08:20 Total Billed Time: 20 Billed Treatment Time MINESH LopezMomoCARLOS ST Aug 29, 2016 08:40
[2016-08-29] MEDS ORDERED: FLUT1DIS26 INH (08:59)
[2016-08-29] MEDS ORDERED: UMEC62.5 INH (08:59)
[2016-08-29] MEDS ORDERED: WARF-47 PO (09:07)
[2016-08-29] MEDS ORDERED: ZOLP10TA5 PO (09:07)
[2016-08-29] MEDS ORDERED: HYDR-3820 PO (09:07)
[2016-08-29] MEDS ORDERED: METF500T4 PO (09:07)
[2016-08-29] MEDS ORDERED: LISI40TA PO (09:07)
[2016-08-29] MEDS ORDERED: RT-ALBUINH INH (09:07)
[2016-08-29] MEDS ORDERED: ALBU2.5V4 NEB (09:07)
[2016-08-29] MEDS ORDERED: ROSU10TA24 PO (09:07)
[2016-08-29] MEDS ORDERED: SERT50TA9 PO (09:07)
[2016-08-29] MEDS ORDERED: NORMAL SALINE (BAXTER MINI) 100 ML IV ONE ×2 (09:12→16:53)
[2016-08-29] MEDS ORDERED: PIPERACILLIN/TAZO 4.5 GM VIAL (ZOSYN) IV ONE ×2 (09:12→16:53)
[2016-08-29] MEDS: NICOTINE 7 MG (NICODERM) PATCH TD SCH (10:28)
[2016-08-29 12:00] VITALS: BP 126/73
--- NOTE | 2016-08-29 14:51 | Progress Note-Hospitalist ---
Standard Progress Note Progress Notes/Assess & Plan Date Seen 08/29/16 Diagnosis 1. Aspiration pneumonitis this is likely a chemical injury at this point she does not qualify for sepsis for this reason. She certainly is at risk for secondary bacterial pneumonitis so I will continue broad-spectrum antibiotics that were initiated by the emergency room staff for now. Had a long discussion with the daughter about poor prognosis and the concern for progression to ARDS. At this point they still wish full CODE STATUS. I did discuss the fact that her quality of life would be worse than previously and it would be unlikely for her to get back to her previous poor baseline. They will discuss CODE STATUS issues further. The daughter is adamant that she will continue to care for her mother at home I did also discuss that this would be even more of a burden should she survive this hospital stay. She will remain nothing by mouth with speech therapy consultation on Monday. We will try oral Coumadin at a reduced dose with a small amount of thickened liquid this evening provided that she is alert. We'll be holding her other medications. 45 minutes of care time was spent in evaluation and discussion as well as order implementation. Assess & Plan/Chief Complaint The patient is a 66-year-old white female with a previous CVA. She presented from home where she is cared for by her daughter with a complaint of apparent aspiration of ice cream and then hypoxia and declining mentation. The daughter had observed this during the feeding process. She states that her mother had been instructed previously in using thicken in her liquids to aid in swallowing. She does not like the taste or the texture and hasn't been doing so. She was coughing rather dramatically during the exam. There was the odor of tobacco products. A speech and swallowing eval was done this morning and is consistent with the previous recommendations of thickened liquids. The initial chest x-ray showed consolidation which would likely be the prove of ice cream in the dependent bronchi. She is exhibited no fever or increasing shortness of breath at this point. Her white count is normal. Physical exam: She looks much older than her stated age. Auscultation of the lungs show a variety of loud gurgles and rhonchi. CV is poorly heard because of the respiratory noises. Impression: Aspiration. 2.previous CVA with right-sided hemiparesis and swallowing impairment. Plan continue prophylactic antibiotics for aspiration pneumonia. 2.encourage adherence to thickened liquid diet Labs Laboratory Tests 08/28/16 04:15 ZANA MUNOZ MD Aug 29, 2016 14:50
[2016-08-29 15:44] VITALS: BP 140/77
[2016-08-29] MEDS: warFARin 2 MG (COUMADIN) TAB PO SCH (17:08)
[2016-08-29 19:37] VITALS: BP 130/70
[2016-08-30 00:10] VITALS: BP 157/76
[2016-08-30] MEDS: RT-ALBUTEROL/IPRATROPIUM 3 ML (DUONEB) VIAL INH SCH ×2 (01:46→06:11)
[2016-08-30] MEDS: PIPERACILLIN SODIUM/TAZOBACTAM 4.5 GM in NORMAL SALINE (BAXTER MINI) 100 ML IV SCH ×2 (02:11→09:00)
[2016-08-30] MEDS: NS IV 1000 ML 1,000 ML IV SCH ×2 (02:11→13:28)
[2016-08-30 04:15] VITALS: BP 156/73
[2016-08-30] MEDS: RT-ADVAIR HFA 115/21 MCG PER PUFF IH SCH (06:11)
[2016-08-30] MEDS: UMECLIDINIUM BROMIDE (INCRUSE ELLIPTA) 7'S IH SCH (06:12)
[2016-08-30 07:50] VITALS: BP 133/73
[2016-08-30] MEDS ORDERED: NORMAL SALINE (BAXTER MINI) 100 ML IV ONE (08:52)
[2016-08-30] MEDS ORDERED: PIPERACILLIN/TAZO 4.5 GM VIAL (ZOSYN) IV ONE (08:52)
[2016-08-30] MEDS ORDERED: PATCH REMOVAL TP SCH (08:59)
[2016-08-30] MEDS: NICOTINE 7 MG (NICODERM) PATCH TD SCH (09:00)
--- NOTE | 2016-08-30 09:01 | Speech Therapy Daily Note ---
Speech Daily Progress Note Subjective The patient was sleeping upon entrance. The patient was roused with gentle verbal prompts and agreed to participate in the dysphagia re-evaluation. Objective - To note, the patient demonstrated a wet, productive cough at baseline (prior to bolus trials) on this date. Honey-Thick Liquid: No signs/symptoms of aspiration were demonstrated with teaspoon trials. The patient demonstrated one delayed cough, as well as, an intermittent (minimally) wet vocal quality with two cup sips of honey-thick liquid (ten cup drinks provided). Due to the patient's compromised respiratory status, rigorous baseline cough, and intermittent wet vocal quality throughout trials, the clinician is recommending a modified barium swallow to definitively rule out aspiration. The video swallow will be schedule as soon as possibly available. This information was shared with the patient's RN. Assessment Assessment Current Status: Fair Progress Treatment Plan Continue Plan of Care Speech Short Term Goals Short Term Goals Short Term Goals 1. The patient will tolerate trials of the least restrictive consistency without signs/symptoms of aspiration. 2. The patient will demonstrate swallowing strategies with mild clinician cueing with 80% accuracy. 3. The patient will demonstrated laryngeal, pharyngeal, and base of tongue strengthening exercises with 80% accuracy and mild clinician verbal cueing. Time Frame-STG: One Week Speech Telephone Operator Receptionist Goals Telephone Operator Receptionist Goals 1. The patient will tolerate a diet of the least restrictive consistency without signs.symptoms of aspiration. Time Frame: Three Weeks Speech-Plan Treatment Plan Speech Therapy Treatment Plan: Continue Plan of Care Treatment Duration: Sep 19, 2016 # of days/week three to four Visits Per Week: Three to Four Minutes/Day (M-F): 20 Rehab Potential: Guarded Safety Risks/Education Teaching Recipient: Patient Teaching Methods: Discussion Response to Teaching: Verbalize Understanding, Reinforcement Needed Education Topics Provided: Swallowing Strategies, Progress, Recommendation of Modified Barium Swallow Time Speech Therapy Time In: 08:30 Speech Therapy Time Out: 08:50 Total Billed Time: 20 Billed Treatment Time [address] Aug 30, 2016 09:01
--- NOTE | 2016-08-30 09:15 | Speech Therapy Progress Note ---
Therapy Progress Note The speech pathologist scheduled a modified barium swallow to definitively rule out aspiration on Wednesday, August 31, 2016 at 11:15 am. The speech pathologist will attempt to contact the patient's RN to update her on the patient's scheduled appointment. CARLOS FERRARA Aug 30, 2016 09:15
[2016-08-30 11:55] VITALS: BP 120/69
--- NOTE | 2016-08-30 13:48 | Progress Note-Hospitalist ---
Standard Progress Note Progress Notes/Assess & Plan Date Seen 08/30/16 Diagnosis 1. Aspiration pneumonitis this is likely a chemical injury at this point she does not qualify for sepsis for this reason. She certainly is at risk for secondary bacterial pneumonitis so I will continue broad-spectrum antibiotics that were initiated by the emergency room staff for now. Had a long discussion with the daughter about poor prognosis and the concern for progression to ARDS. At this point they still wish full CODE STATUS. I did discuss the fact that her quality of life would be worse than previously and it would be unlikely for her to get back to her previous poor baseline. They will discuss CODE STATUS issues further. The daughter is adamant that she will continue to care for her mother at home I did also discuss that this would be even more of a burden should she survive this hospital stay. She will remain nothing by mouth with speech therapy consultation on Monday. We will try oral Coumadin at a reduced dose with a small amount of thickened liquid this evening provided that she is alert. We'll be holding her other medications. 45 minutes of care time was spent in evaluation and discussion as well as order implementation. Assess & Plan/Chief Complaint The patient remains afebrile. Literature would suggest that given this further antibiotic prophylaxis would be unnecessary. Discussed this with the patient. I'm not clear about her ability to comprehend however she appeared enthusiastic about the process of returning home. Physical exam: She is alert and responsive. Lungs show scattered harsh rhonchi particularly in the bases. CV is regular. Impression: Old CVA with chronic dysphagia. 2.inadvertent aspiration of food stuffs Plan: Discharge to home. Resume previous status. Suggest the daughter acquire the gel form of thicken Final Diagnosis 1.acute hypoxia secondary to aspiration of ice cream. 2.chronic dysphagia secondary to old stroke. 3.right hemiparesis ZANA MUNOZ MD Aug 30, 2016 13:48
--- NOTE | 2016-08-30 13:53 | Discharge Inst-Simple/Standard ---
Discharge Inst-Standard Patient Instructions/Follow Up Plan of Care/Instructions/FU: Resume previous medications and activities. Make sure the patient is in sitting position to eat. Attempt to acquire the thicken gel at cost from your employer. Activity as Tolerated: Yes Goal: Stable performance Discharge Diet: Other Diet Return to The Hospital For: Decline in condition Planned Outpatient Orders/Ref. Pneu Vac Indicated: Yes ZANA MUNOZ MD Aug 30, 2016 13:53
[2016-08-30] MEDS ORDERED: RT-ALBUTEROL/IPRATROPIUM 3 ML (DUONEB) VIAL INH SCH (14:00)
[2016-08-30 16:00] VITALS: BP 146/80
[2016-08-30 17:25] VITALS: BP 146/80
--- NOTE | 2016-09-14 13:28 | Discharge Summary-Hospitalist ---
Diagnosis/Chief Complaint Date of Admission Aug 27, 2016 at 05:30 Date of Discharge Aug 30, 2016 at 17:25 Discharge Date: Aug 30, 2016 Admission Diagnosis 1. Aspiration pneumonitis this is likely a chemical injury at this point she does not qualify for sepsis for this reason. She certainly is at risk for secondary bacterial pneumonitis so I will continue broad-spectrum antibiotics that were initiated by the emergency room staff for now. Had a long discussion with the daughter about poor prognosis and the concern for progression to ARDS. At this point they still wish full CODE STATUS. I did discuss the fact that her quality of life would be worse than previously and it would be unlikely for her to get back to her previous poor baseline. They will discuss CODE STATUS issues further. The daughter is adamant that she will continue to care for her mother at home I did also discuss that this would be even more of a burden should she survive this hospital stay. She will remain nothing by mouth with speech therapy consultation on Monday. We will try oral Coumadin at a reduced dose with a small amount of thickened liquid this evening provided that she is alert. We'll be holding her other medications. 45 minutes of care time was spent in evaluation and discussion as well as order implementation. Discharge Diagnosis 1.remote CVA with hemiparesis and swallowing dysfunction of long-standing. 2.apparent aspiration (ice cream) with chemical pneumonitis. 3.long-standing dysphagia with recommended gel consistency for liquids Reason Hospital Visit/Course Mrs. Ontiveros is a frail 66-year-old white female who is cared for by her daughter due to some the sequela of a right-sided CVA with left-sided hemiparesis several years ago. She would be unable to care for self otherwise. History is taken from the daughter who stated that she was in her usual state of health until her evening snack which included ice cream. She apparently did okay with the solid part of the medial chicken wings and another fast food items. When she started working on the ice cream she began coughing and choking the daughter was present and had a take the ice cream away from her. She became more obtunded after that with continued rattling which she did not have previously was brought to the emergency room where examination and CT findings suggested aspiration pneumonitis involving both lower lobes worse on the right. Past medical history other than her CVA is significant for similar admission for aspiration pneumonitis in 2014. Discharge Summary Discharge Physical Examination Allergies: Coded Allergies: No Known Drug Allergies (Unverified , 02/25/14) Hospital Course Labs (last 24 hrs) Microbiology 08/27/16 Blood Culture - Final, Complete No growth 08/29/16 Gram Stain - Final, Complete 08/29/16 Sputum Culture - Final, Complete Presumptive Marlyn Albicans Yeast Species 08/27/16 Urine Culture - Final, Complete Klebsiella Pneumoniae Discussion & Recommendations The patient was admitted after she presented to the emergency room following an event at home in which she was eating ice cream then began coughing and choking. Following that she became more obtunded. The CT scan done in the emergency room may in fact have shown the ice cream in the right middle lobe bronchus as there was an acute consolidation occurring much earlier than one would expect from pneumonia. The patient was reevaluated by speech and the recommendations were very much the same as they have been in 2014. The patient apparently did not like the powdered Gelfoam material that had been used. Her daughter works in a retirement and is familiar with the gel form of the medication however it is more difficult to acquire. Attempt was made for her to be able to do this in order to maximize her performance at home. She was discharged in improved condition. Medications are as listed in the discharge sequence. Discharge Home Medications: Active Scripts Active Reported Albuterol Sulfate 2.5 Mg/3 Ml Vial.neb 2.5 Mg NEB Q4H PRN Ventolin Hfa (Albuterol Sulfate) 18 Gm Hfa.aer.ad 2 Puff INH Q4H PRN Zolpidem Tartrate 10 Mg Tablet 5 Mg PO HS TAKES 1/2 (10MG) TABLET Rosuvastatin Calcium 10 Mg Tablet 10 Mg PO HS Sertraline HCl 50 Mg Tablet 50 Mg PO DAILY Warfarin Sodium 2 Mg Tablet 2 Mg PO MOFR Lisinopril 40 Mg Tablet 40 Mg PO DAILY Hydrocodon-Acetaminophn 10-325 (Hydrocodone/Acetaminophen) 1 Each Tablet 1 Tab PO TID Metformin HCl 500 Mg Tablet 250 Mg PO BID TAKES 1/2 (500MG) TABLET Incruse Ellipta (Umeclidinium [place]) 62.5 Mcg Blst.w.dev 1 Puff INH DAILY Advair 250-50 Diskus (Fluticasone/Salmeterol) 1 Each Blst.w.dev 1 Puff INH BID Aspir 81 (Aspirin) 81 Mg Tablet.dr 81 Mg PO DAILY Warfarin Sodium 2 Mg Tablet 4 Mg PO SUTUWETHSA TAKES 2 (2MG) TABLETS Neurontin (Gabapentin) 100 Mg Cap 100 Mg PO BID Instructions to patient/family Please see electonic discharge instructions given to patient. Clinical Quality Measures DVT/VTE Risk/Contraindication: Risk Factor Score Per Nursin RFS Level Per Nursing on Admit: 4+=Very High ZANA MUNOZ MD Sep 14, 2016 13:28
== END 2016-08-30 17:25 | disposition home or self-care (01) | DRG 190 ==
LOC: EDUNIT# 02:46 → ER 02:49 → 4TH 05:30
PROVIDERS: ADMIT Internal Medicine; ATTEND Internal Medicine
DX: J44.1 Chronic obstructive pulmonary disease with (acute) exacerbation (principal); J69.0 Pneumonitis due to inhalation of food and vomit; N39.0 Urinary tract infection, site not specified; I69.354 Hemiplegia and hemiparesis following cerebral infarction affecting left non-dominant side; I69.321 Dysphasia following cerebral infarction; I69.391 Dysphagia following cerebral infarction; R13.12 Dysphagia, oropharyngeal phase; E86.0 Dehydration; N28.9 Disorder of kidney and ureter, unspecified; I95.9 Hypotension, unspecified; I10 Essential (primary) hypertension; R32 Unspecified urinary incontinence; E78.00 Pure hypercholesterolemia, unspecified; F41.9 Anxiety disorder, unspecified; F32.9 Major depressive disorder, single episode, unspecified; G47.9 Sleep disorder, unspecified; Z91.81 History of falling; Z86.718 Personal history of other venous thrombosis and embolism; Z86.711 Personal history of pulmonary embolism; Z98.890 Other specified postprocedural states; Z96.652 Presence of left artificial knee joint; F17.210 Nicotine dependence, cigarettes, uncomplicated
CPT/HCPCS: 36415; 51701; 71010; 71250; 80053; 80202; 81000; 82550; 82553; 82805; 83605; 83735; 83880; 84484; 85007; 85025; 85610; 85730; 87040; 87070; 87077; 87088; 87186; 87205; 87804; 93005; 93041; 94640; 94664; 94760; 96365; 96375